=== PATIENT | female | born 1995 | race Caucasian/White ===

== ENCOUNTER 2019-09-20 10:37 | Emergency (ER) | payer OTHER, SELFPAY ==
[2019-09-20 10:48] VITALS: BP 130/83; PULSE 78; RESP 18; TEMP 37.1; O2SAT 100
--- NOTE | 2019-09-20 11:06 | ED.GENADULT ---
HPI - General Adult General Chief complaint: Upper Respiratory Infection Stated complaint: sore throat/congestion Time Seen by Provider: 09/20/19 11:07 Source: patient and RN notes reviewed Mode of arrival: ambulatory Limitations: no limitations History of Present Illness HPI narrative: 24-year-old female presents with complaints of fatigue, rhinorrhea, congestion, body aches, lethargic, sore throat, swelling to tonsils, and headaches (not the worst of her life, she has Migraines) for the past 5 days day. History of Asthma. Tylenol cold and flu with little relief. No high fevers, highest was obtained once at 100.3 Fahrenheit, orally on 09/18/19. No drooling, neck or throat swelling. Pain is bilateral. Hurts to swallow. Exacerbation factors consist of eating and drinking. Symptoms continue to increase daily with sore throat and diarrhea. No voice change. Diarrhea with loss of appetite, without nausea, vomiting, or abdominal pain. Last episode of watery brown diarrhea this morning prior to arrival and has had 2 watery stools today, 4 yesterday, and 2-3 watery brown stools on 09/18/19 when diarrhea started per Janis. Tolerating liquids well. Denies chills, dyspnea, difficulty swallowing, jaw pain, dental pain, facial pain, foreign body sensation, and rash. Denies being , LMP unknown due to continuos control vaginal ring. Remains active (decrease). The patient reports she have not been diagnosed with COVID-19. The patient reports she is waiting for the results of a COVID-19 lab test, that she obtained on Wednesday09/18/19 at [facility]. The patient reports she do not have fever, chills, weakness, or facial swelling. The patient reports she do not have a new or worsening cough or shortness of breath. Denies chest pain. The patient reports she do not have any nausea, vomiting, or abdominal pain. Denies recent traveling. No sure if she may have or may not have COVID-19 or exposures due to work. At this time, patient is suspected of having COVID-19. Some parts of this dictation were generated by voice recognition software and may contain typographical and/or grammatical inaccuracies. Related Data Home Medications Medication Instructions Recorded Confirmed albuterol sulfate 2 puff INHALATION QID PRN 09/20/19 09/20/19 Allergies Allergy/AdvReac Type Severity Reaction Status Date / Time banana AdvReac Unknown Unknown Verified 09/20/19 11:09 latex AdvReac Unknown Unknown Verified 09/20/19 11:09 mold AdvReac Unknown Unknown Verified 09/20/19 11:09 tomato AdvReac Unknown Unknown Verified 09/20/19 11:09 Review of Systems Review of Systems: Narrative: CONSTITUTIONAL: Complains of 1 episode of low-grade fever, fatigue. Denies chills, sweats. EYES: Denies visual changes, redness, discharge. ENT: Denies otalgia. Complains of rhinorrhea, sore throat, swollen tonsils, congestion. CARDIOVASCULAR: Denies chest pain, palpitations, edema. RESPIRATORY: Denies dyspnea, wheezing, cough. GASTROINTESTINAL: Denies abdominal pain, nausea, vomiting, Complains of diarrhea, loss of appetite. GENITOURINARY: Denies dysuria, hematuria, abnormal discharge. SKIN: Denies rash or itching. MUSCULOSKELETAL: Denies acute back pain. Complains of joint pain, myalgia. NEUROLOGIC: Denies numbness or focal weakness. Complains of RALPH. PSYCHIATRIC: Denies anxiety or depression. All systems reviewed & are unremarkable except as noted in HPI and below. [facility] Past Medical History Medical History (Updated 09/20/19 @ 16:28 by EMILY Crabtree) Asthma Hx of migraines Surgical History Surgical History (Updated 09/20/19 @ 11:09 by EMILY Crabtree) No significant past surgical history Family History Family History (Updated 09/20/19 @ 16:28 by EMILY Crabtree) Grandparent Family history of malignant neoplasm of breast in first degree relative Father Smoker Mother Smoker Social History
== END 2019-09-20 11:30 | disposition home or self-care (01) ==
PROVIDERS: Emergency Provider Nurse Practitioner Family
DX: J02.9 Acute pharyngitis, unspecified (principal); J45.909 Unspecified asthma, uncomplicated
CPT/HCPCS: 87081; 87804; 87880; 99213; G0463

== ENCOUNTER 2020-02-04 14:51 | Emergency (ER) | payer OTHER, SELFPAY ==
[2020-02-04 15:06] VITALS: BP 134/90; PULSE 85; RESP 18; TEMP 36.3; O2SAT 98
--- NOTE | 2020-02-04 15:37 | ED.URI ---
HPI - URI/Sore Throat General Chief Complaint: Upper Respiratory Infection Stated Complaint: Sore Throat Time Seen by Provider: 02/04/20 15:37 Source: patient Mode of arrival: ambulatory Limitations: no limitations History of Present Illness HPI Narrative: Janis gonzalez 4-year-old female with a PMH of asthma who started having difficulty controlling her asthma symptoms about a week ago and has increased her use of her rescue inhaler to more than 3 times a day and is now of rescue inhaler she is also waking up in the middle the night with respiratory issues. Along with her asthma symptoms she is sore throat and runny nose She states she is not been out in public other than to work job part-time for a limited number of days, she has groceries delivered Related Data Home Medications Medication Instructions Recorded Confirmed albuterol sulfate 2 puff INHALATION QID PRN 09/20/19 09/20/19 Allergies Allergy/AdvReac Type Severity Reaction Status Date / Time banana AdvReac Unknown Unknown Verified 02/04/20 15:13 latex AdvReac Unknown Unknown Verified 02/04/20 15:13 mold AdvReac Unknown Unknown Verified 02/04/20 15:13 tomato AdvReac Unknown Unknown Verified 02/04/20 15:13 Review of Systems Review of Systems: Narrative: CONSTITUTIONAL: Denies fever, chills, sweats. Has fatigue and body aches EYES: Denies visual changes, redness, discharge. ENT: Denies rhinorrhea, congestion, has sore throat, otalgia. CARDIOVASCULAR: Denies chest pain, palpitations, edema. RESPIRATORY: Denies dyspnea, has wheezing, has cough GASTROINTESTINAL: Denies abdominal pain, nausea, vomiting, diarrhea. GENITOURINARY: Denies dysuria, hematuria, abnormal discharge SKIN: Denies rash or itching. NEUROLOGIC: Denies numbness, or focal weakness. PSYCHIATRIC: Denies anxiety or depression. [facility] Past Medical History Medical History (Updated 02/04/20 @ 15:57 by Karyna Cartagena CNP) Asthma Hx of migraines Upper respiratory infection Surgical History Surgical History No significant past surgical history Family History Family History Grandparent Family history of malignant neoplasm of breast in first degree relative Father Smoker Mother Smoker Social History Social History Smoking status: Never smoker Second hand tobacco smoke exposure: No Alcohol intake: never Substance use: never Additional living arrangements comments: live in boyfriend Gender identity (if verbalized by the patient): Female Comments At time of signature, I agree with nursing past medical, surgical, social and family history. There is no relevant family history pertinent to the presenting complaint. Exam Narrative: Exam Narrative: GENERAL: This is a well-nourished, well-developed patient, in mild distress. HEAD: normocephalic, atraumatic. EYES: Sclera clear/white. Vision is grossly intact. EARS: External ears normal, auditory canals clear and without drainage, TMs normal without perforation. Hearing grossly intact. NOSE: External nose normal without nasal discharge, nares with redness, no rhinorrhea. THROAT: Mucous membranes moist, posterior pharynx erythema with edema NECK: Neck supple, non-tender CARDIOVASCULAR: Regular rate and rhythm without murmurs, gallops, or rubs. RESPIRATORY: Diminished to auscultation. Breath sounds equal bilaterally. No wheezes, rales, or rhonchi. GASTROINTESTINAL: Abdomen soft, non-tender, SKIN: warm, intact with no suspicious lesions or rash, good texture and turgor. NEURO: awake, alert, and oriented to person, place and time. There were no obvious focal neurologic abnormalities. Steady gait EXTREMITIES: Normal range of motion. BACK: Nontender without deformity Course Course Emergency Course: Patient has been using her rescue inhaler frequently in the [facility]
== END 2020-02-04 16:10 | disposition home or self-care (01) ==
PROVIDERS: Emergency Provider Nurse Practitioner
DX: J06.9 Acute upper respiratory infection, unspecified (principal); Z20.828 Contact with and (suspected) exposure to other viral communicable diseases; J45.909 Unspecified asthma, uncomplicated
CPT/HCPCS: 87081; 87880; 99213; G0463

== ENCOUNTER 2020-02-07 06:54 | Outpatient (NON) | payer OTHER, SELFPAY ==
[2020-02-07 18:06] LABS: SARS-CoV-2 RNA PCR Negative
== END 2020-02-07 06:55 ==
LOC: ANHCOVIDDT 07:01
PROVIDERS: Visit Provider Nurse Practitioner
DX: J06.9 Acute upper respiratory infection, unspecified (principal); Z20.828 Contact with and (suspected) exposure to other viral communicable diseases
CPT/HCPCS: 87635; C9803; U0003

== ENCOUNTER 2020-06-21 21:24 | Emergency (ER) | payer OTHER, SELFPAY ==
--- NOTE | ~2020-06-21 | XR_ITS ---
EXAMINATION: XR chest 1V portable DATE: 06/21/2020 22:47 INDICATION: Asthma presenting with shortness of breath after cleaning with bleach. TECHNIQUE: frontal and lateral views of the chest were obtained. COMPARISON: None FINDINGS: The lungs are clear with no focal airspace opacities, pulmonary edema, pleural effusion or pneumothor ax. The cardiomediastinal silhouette is normal. Visualized bones and soft tissues are unremarkable. IMPRESSION: 1. Normal chest radiograph. Reviewed, dictated and finalized at [facility]. IMPRESSION: 1. Normal chest radiograph.
[2020-06-21 21:26] VITALS: BP 135/77; PULSE 112; RESP 28; TEMP 35.6; O2SAT 100
[2020-06-21] MEDS: predniSONE 40 MG, predniSONE 10 MG 50 MG PO (22:19)
[2020-06-21 22:20] VITALS: PULSE 117; RESP 24
[2020-06-21] MEDS: IPRATROPIUM BR 0.02% INH SOLN 0.5 MG/2.5 ML VIAL 1.5 MG INHALATION (22:25)
[2020-06-21] MEDS: ALBUTEROL SULFATE NEB 2.5 MG/0.5 ML INH 15 MG INHALATION (22:25)
[2020-06-21 23:09] VITALS: PULSE 119; RESP 20
--- NOTE | 2020-06-21 23:12 | ED.SOB ---
HPI - SOB/Dyspnea General Chief Complaint: Shortness of Breath/Dyspnea Stated Complaint: shortness of breath, asthma Time Seen by Provider: 06/21/20 22:00 History of Present Illness HPI Narrative: Patient is a 25-year-old female who presents the ER with shortness of breath. Exposed to some household flask cleaner that had bleach in it which made her short of breath. Had one treatment of DuoNeb left at home which helped but then her wheezing returned. She has no rescue inhaler. No fevers or chills or sweats. No productive cough. Has history of asthma. Related Data Home Medications Medication Instructions Recorded Confirmed albuterol sulfate 2 puff INHALATION QID PRN 09/20/19 09/20/19 Allergies Allergy/AdvReac Type Severity Reaction Status Date / Time banana AdvReac Unknown Unknown Verified 04/23/20 14:46 latex AdvReac Unknown Unknown Verified 04/23/20 14:46 mold AdvReac Unknown Unknown Verified 04/23/20 14:46 tomato AdvReac Unknown Unknown Verified 04/23/20 14:46 Review of Systems Review of Systems: All systems reviewed & are unremarkable except as noted in HPI and below Constitutional: Constitutional: Denies chills and Denies fever(s) Cardiovascular: Cardiovascular: Denies chest pain and Denies radiating jaw, neck or arm pain Respiratory: Respiratory: Denies cough, Reports dyspnea and Reports wheezing PMFSH Past Medical History Medical History Asthma Hx of migraines Upper respiratory infection Surgical History Surgical History No significant past surgical history Family History Family History Grandparent Family history of malignant neoplasm of breast in first degree relative Father Smoker Mother Smoker Social History Social History Smoking status: Never smoker Second hand tobacco smoke exposure: No Alcohol intake: never Substance use: never Additional living arrangements comments: live in boyfriend Gender identity (if verbalized by the patient): Female Exam Narrative: Exam Narrative: GENERAL: Well-appearing, well-nourished, and in no acute distress. HEAD: Normocephalic, atraumatic. CHEST: Diffuse inspiratory and expiratory wheezing. No respiratory distress. Speaking in full sentences. HEART: Tachycardic and regular. Normal peripheral pulses. EXTREMITIES: Normal range of motion. No edema. SKIN: Warm, dry, no rash. NEURO: Alert and oriented x3. Course Course Emergency Course: Lung sounds normalized after hour-long nebulizer treatment. Discharge home with supportive care. Vital Signs Vital signs: Vital Signs Temperature 96.1 F L 06/21/20 21:26 Pulse Rate 112 H 06/21/20 21:26 Respiratory Rate 28 H 06/21/20 21:26 Blood Pressure 135/77 06/21/20 21:26 Pulse Oximetry 100 06/21/20 21:26 Temperature 96.1 F L 06/21/20 21:26 Pulse Rate 119 H 06/21/20 23:09 Respiratory Rate 20 06/21/20 23:09 Blood Pressure 135/77 06/21/20 21:26 Pulse Oximetry 100 06/21/20 21:26 MDM - SOB/Dyspnea Imaging Data Radiologist's impression: ITS Impressions Chest X-Ray 06/21/20 23:08 IMPRESSION: 1. Normal chest radiograph. Discharge Plan Discharge Clinical Impression: Asthma with exacerbation Patient Disposition: Home, Self-Care Condition: Stable Instructions: Asthma (ED) Additional Instructions: Return to the ER if you have worsening shortness of breath, you cannot keep down food or water, you have fever over 100.4 ?F, you have additional concerns. Prescriptions: New albuterol sulfate 90 mcg/actuation HFA aerosol inhaler 2 puff INHALATION QID PRN (Reason: shortness of breath or wheezing) Qty: 8 RF: 0 ipratropium-albuterol 0.5 mg-3 mg(2.5 mg base)/3 mL solution for nebulization 3 ml inhalation QID PRN (Reaso
[2020-06-21 23:30] VITALS: BP 136/82; PULSE 104; RESP 20; TEMP 36.3; O2SAT 100
== END 2020-06-21 23:31 | disposition home or self-care (01) ==
PROVIDERS: Emergency Provider Emergency Medicine
DX: J45.901 Unspecified asthma with (acute) exacerbation (principal)
CPT/HCPCS: 71045; 94640; 99283; J7512

== ENCOUNTER 2020-12-20 10:45 | Outpatient (CLI) | payer OTHER, SELFPAY ==
[2020-12-20 19:29] LABS: Beta HCG Quantitative 14.66 mIU/ML
== END 2020-12-20 10:46 | disposition home or self-care (01) ==
LOC: ANHBWCLAB 10:46
PROVIDERS: Visit Provider Student in an Organized Health Care Education/Training Program
DX: Z30.40 Encounter for surveillance of contraceptives, unspecified (principal)
CPT/HCPCS: 36415; 84702

== ENCOUNTER 2021-02-19 13:50 | Outpatient (CLI) | payer OTHER, SELFPAY ==
[2021-02-19 17:54] LABS: Hematocrit 42.4 % (37.0-47.0); Hemoglobin 14.4 g/dL (12.0-15.0); Mean Corpuscular Hemoglobin 30.3 pg (26-34); Mean Corpuscular Volume 89.3 fl (80-100); Mean Platelet Volume 9.9 fl (7.4-10.4); Platelet Count Result 190 k/mm3 (150-375); Red Blood Count 4.75 M/mm3 (4.2-5.4); Red Cell Distribution Width 14.6 % (11.5-14.5); White Blood Count 6.7 K/mm3 (4.5-10.0)
[2021-02-19 18:26] LABS: Vitamin D 25 Hydroxy 29.9 ng/mL
== END 2021-02-19 13:51 | disposition home or self-care (01) ==
LOC: ANHBWCLAB 13:53
PROVIDERS: PCP Family Medicine; Visit Provider Family Medicine
DX: Z86.69 Personal history of other diseases of the nervous system and sense organs (principal)
CPT/HCPCS: 36415; 82306; 85027

== ENCOUNTER 2021-12-30 10:56 | Outpatient (CLI) | payer OTHER, SELFPAY ==
--- NOTE | ~2021-12-30 | US_ITS ---
US breast RT limited DATE: 12/30/2021 11:17 INDICATION: Right breast lump for 6 months, increasing in size TECHNIQUE: Real-time imaging and color flow imaging targeted to right breast lump at 11:00 6 cm from nipple COMPARISON: None FINDINGS: At 11:00 6 cm from the nipple there is a parallel circumscribed heterogeneous hypoechoic so lid lesion measuring 2.7 x 1.5 x 3.1 cm dimension. No internal vascularity is noted on color flow srinivas ging. No suspicious shadowing. The sonographic appearance is most consistent with benign fibroadenoma . IMPRESSION: BI-RADS Category 3: Probably benign. Probable benign fibroadenoma Recommendation: 6 month targeted right breast ultrasound follow-up Reviewed, dictated and finalized at [facility]. Reviewed, dictated and finalized at location [facility]. [employer]ITY LOAN CLERK
== END 2021-12-30 10:57 | disposition home or self-care (01) ==
PROVIDERS: PCP Family Medicine; Visit Provider Student in an Organized Health Care Education/Training Program
DX: N63.10 Unspecified lump in the right breast, unspecified quadrant (principal)
CPT/HCPCS: 76642